=== PATIENT | female | born 1990 | race Caucasian/White ===

== ENCOUNTER → 2016-10-31 | Outpatient (REF) ==
[~2016-10-31] MED LIST: *ANUSOI PR; ACET500C OR; COLA100C2 OR; IBUP600T OR; LANOOIL2 XX; MILKSUS PV; MOTR200T44 PO; PRENTAB8 PO; TYLE325T5 PO; VITAPRTA PO
[2016-10-31 14:10] LABS: BASO % 0.4 % (0.0-1.0); EOS # 0.1 K/mm3 (0.0-0.50); EOS % 1.4 % (0.0-3.0); LARGE UNSTAINED CELL # 0.2 K/mm3 (0.0-0.4); LARGE UNSTAINED CELL % 2.6 % (0.0-4.0); LYMPH # 2.6 K/mm3 (1.5-6.5); LYMPH % 33.1 % (24.0-44.0); MEAN CORPUSCULAR HEMOGLOBIN 31.3 pg (27.0-33.0); MEAN CORPUSCULAR HGB CONC 34.9 g/dl (32.0-36.5); MEAN CORPUSCULAR VOLUME 89.7 fl (80.0-96.0); MONO # 0.3 K/mm3 (0.0-0.8); MONO % 4.6 % (0.0-5.0); NEUTROPHILS # 4.2 K/mm3 (1.8-7.7); NEUTROPHILS % 57.9 % (36.0-66.0); PLATELET COUNT, AUTOMATED 192 k/mm3 (150-450); RED CELL DISTRIBUTION WIDTH 12.5 % (11.5-14.5); WHITE BLOOD COUNT 7.3 K/mm3 (4.0-10.0)
[2016-10-31 14:48] LABS: ALBUMIN 3.9 GM/DL (3.2-5.2); ALBUMIN/GLOBULIN RATIO 1.56 (1.00-1.93); ALKALINE PHOSPHATASE 87 U/L (45-117); ALT/SGPT 16 U/L (12-78); ANION GAP 9 MEQ/L (8-16); AST/SGOT 10 U/L (15-37); BILIRUBIN,TOTAL 1.3 MG/DL (0.2-1.0); BLOOD UREA NITROGEN 11 MG/DL (7-18); CALCIUM LEVEL 8.8 MG/DL (8.5-10.1); CARBON DIOXIDE LEVEL 26 MEQ/L (21-32); CHLORIDE LEVEL 106 MEQ/L (98-107); CREATININE FOR GFR 0.91 MG/DL (0.55-1.02); GLOMERULAR FILTRATION RATE > 60.0 (>60); GLUCOSE, FASTING 80 MG/DL (70-105); POTASSIUM SERUM 4.1 MEQ/L (3.5-5.1); SODIUM LEVEL 141 MEQ/L (136-145); TOTAL PROTEIN 6.4 GM/DL (6.4-8.2)
== END ==
LOC: M LAB 12:40
PROVIDERS: ATTEND Nurse Practitioner Adult Health
DX: Z02.1 Encounter for pre-employment examination (principal)

== ENCOUNTER → 2017-05-03 | Outpatient (REF) | payer BC, OTHER | LOC: M LAB REF 16:59 | DX: Z12.4 Encounter for screening for malignant neoplasm of cervix (principal) ==

== ENCOUNTER → 2017-06-05 | Outpatient (REF) | payer BC, OTHER ==
[2017-06-05 16:11] LABS: INFLUENZA A AMPLIFICATION NEGATIVE (NEGATIVE); INFLUENZA B AMPLIFICATION NEGATIVE (NEGATIVE)
== END ==
LOC: M LAB REF 15:05
DX: J11.1 Influenza due to unidentified influenza virus with other respiratory manifestations (principal)
CPT/HCPCS: 87502

== ENCOUNTER → 2017-11-03 | Outpatient (REF) | payer BC, OTHER ==
[2017-11-03 15:20] LABS: CHLAMYDIA DNA AMPLIFICATION NEGATIVE (NEGATIVE); GC DNA AMPLIFICATION NEGATIVE (NEGATIVE)
== END ==
LOC: M LAB REF 12:57
DX: R10.30 Lower abdominal pain, unspecified (principal)
CPT/HCPCS: 87086

== ENCOUNTER → 2019-01-07 | Outpatient (REF) | payer BC | LOC: M LAB REF 10:51 | PROVIDERS: ATTEND Advanced Practice Midwife | DX: R87.610 Atypical squamous cells of undetermined significance on cytologic smear of cervix (ASC-US) (principal) | CPT/HCPCS: 87624; G0123 ==

== ENCOUNTER → 2019-05-02 | Outpatient (CLI) | payer BC ==
[2019-05-02 11:22] LABS: HCG, SERUM QUALITATIVE POSITIVE (NEGATIVE)
== END ==
LOC: M PLALAB 08:08
PROVIDERS: ATTEND Advanced Practice Midwife
DX: O36.80X0 Pregnancy with inconclusive fetal viability, not applicable or unspecified (principal)

== ENCOUNTER → 2019-05-27 | Outpatient (CLI) | payer BC ==
--- NOTE | 2019-05-27 19:21 | REP ---
First trimester obstetric sonography: History: Dating and viability. Bleeding. Threatened . Findings: Transabdominal scanning confirms the presence of a single living intrauterine gestation in a free-floating lie. The crown-rump length of the embryonic pole is 13 mm. This corresponds with a gestational age estimate of 7 weeks 4 days. heart rate is recorded at 150 beats per minute. No subchorionic hemorrhage is seen. There is a 1.5 cm cystic area in the maternal right ovary consistent with corpus luteum. No gross anomaly. Impression: Viable single intrauterine gestation at 7 weeks 4 days by crown-rump length. BART by sonography January 09, 2020. No complication is identified.
== END ==
LOC: M WHC 14:29
PROVIDERS: ATTEND Advanced Practice Midwife
DX: O20.0 Threatened abortion (principal); Z3A.01 Less than 8 weeks gestation of pregnancy

== ENCOUNTER → 2019-07-29 | Outpatient (REF) | payer BC ==
[2019-07-29 15:42] LABS: HEMATOCRIT 36.3 % (36.0-47.0); HEMOGLOBIN 12.5 g/dl (12.0-15.5); MEAN CORPUSCULAR HEMOGLOBIN 32.9 pg (27.0-33.0); MEAN CORPUSCULAR HGB CONC 34.4 g/dl (32.0-36.5); MEAN CORPUSCULAR VOLUME 95.5 fl (80.0-96.0); PLATELET COUNT, AUTOMATED 196 10^3/uL (150-450); WHITE BLOOD COUNT 8.2 10^3/uL (4.0-10.0)
[2019-07-29 16:30] LABS: HEPATITIS B SURFACE ANTIGEN NEGATIVE (NEGATIVE); HEPATITIS C VIRUS ABY INDEX 0.1 INDEX (<0.8); HIV 1&2 SCREEN CENTAUR NEGATIVE (NEGATIVE)
[2019-07-29 21:22] LABS: CHLAMYDIA DNA AMPLIFICATION NEGATIVE (NEGATIVE); GC DNA AMPLIFICATION NEGATIVE (NEGATIVE)
== END ==
LOC: M PLALAB 13:14
PROVIDERS: ATTEND Advanced Practice Midwife
DX: Z34.81 Encounter for supervision of other normal pregnancy, first trimester (principal)

== ENCOUNTER → 2019-10-07 | Outpatient (REF) | payer BC ==
[~2019-10-07] MED LIST changes: +BENEPOW18 PO; +CEPH500C PO; +COLA100C5 PO; +IBUP80TA PO; +PRENTAB55 PO
[2019-10-07 14:11] LABS: HEMATOCRIT 37.9 % (36.0-47.0); HEMOGLOBIN 12.4 g/dl (12.0-15.5); MEAN CORPUSCULAR HEMOGLOBIN 31.8 pg (27.0-33.0); MEAN CORPUSCULAR HGB CONC 32.7 g/dl (32.0-36.5); MEAN CORPUSCULAR VOLUME 97.2 fl (80.0-96.0); PLATELET COUNT, AUTOMATED 164 10^3/uL (150-450); WHITE BLOOD COUNT 8.7 10^3/uL (4.0-10.0)
== END ==
LOC: M PLALAB 08:23
PROVIDERS: ATTEND Advanced Practice Midwife
DX: Z36.89 Encounter for other specified antenatal screening (principal)

== ENCOUNTER 2019-11-21 13:26 | Inpatient (IN) | payer BC ==
[~2019-11-21] VITALS: Ht 160 cm; Wt 77.6 kg
[~2019-11-21 13:26] MED LIST changes: -BENEPOW18 PO; -CEPH500C PO; -COLA100C5 PO; -IBUP80TA PO; -PRENTAB55 PO
[2019-11-21] MEDS ORDERED: PRENTAB55 PO (13:53)
[2019-11-21] MEDS ORDERED: COLA100C5 PO (13:53)
[2019-11-21] MEDS ORDERED: BENEPOW18 PO (13:53)
[2019-11-21] MEDS ORDERED: NS 1,000 ML IV ONE (14:30)
[2019-11-21 15:29] LABS: BASO % 0.2 % (0.0-1.0); HEMATOCRIT 41.2 % (36.0-47.0); HEMOGLOBIN 13.5 g/dl (12.0-15.5); LYMPH # 0.7 10^3/uL (1.5-5.0); LYMPH % 6.5 % (24.0-44.0); MEAN CORPUSCULAR HEMOGLOBIN 30.5 pg (27.0-33.0); MEAN CORPUSCULAR HGB CONC 32.8 g/dl (32.0-36.5); MONO # 0.5 10^3/uL (0.0-0.8); MONO % 5.4 % (0.0-5.0); NEUTROPHILS # 8.6 10^3/uL (1.5-8.5); NEUTROPHILS % 85.6 % (36.0-66.0); PLATELET COUNT, AUTOMATED 130 10^3/uL (150-450); RED BLOOD COUNT 4.43 10^6/uL (4.00-5.40); WHITE BLOOD COUNT 10.1 10^3/uL (4.0-10.0)
[2019-11-21 15:51] LABS: ALBUMIN 2.7 GM/DL (3.2-5.2); ALT/SGPT 41 U/L (12-78); BILIRUBIN,DIRECT 0.6 MG/DL (0.0-0.2); BILIRUBIN,TOTAL 1.9 MG/DL (0.2-1.0); BLOOD UREA NITROGEN 4 MG/DL (7-18); CALCIUM LEVEL 8.9 MG/DL (8.5-10.1); CARBON DIOXIDE LEVEL 18 MEQ/L (21-32); CHLORIDE LEVEL 109 MEQ/L (98-107); CREATININE FOR GFR 0.62 MG/DL (0.55-1.30); GLOMERULAR FILTRATION RATE > 60.0 (>60); GLUCOSE, FASTING 68 MG/DL (70-100); LIPASE 72 U/L (73-393); POTASSIUM SERUM 3.2 MEQ/L (3.5-5.1); SODIUM LEVEL 138 MEQ/L (136-145); TOTAL PROTEIN 5.8 GM/DL (6.4-8.2)
[2019-11-21] MEDS ORDERED: POTASSIUM CHLORIDE 10 MEQ SR TABLET PO ONE (16:00)
--- NOTE | 2019-11-21 16:00 | REPVR ---
PROCEDURE INFORMATION: Exam: US Pelvis Limited, Transabdominal Exam date and time: 11/21/2019 3:17 PM Age: 28 years old Clinical indication: Pelvic pain; Patient HX: PT is preg but appendix exam was order under pelvic ltd; Additional info: Rlq pain eval for appy TECHNIQUE: Imaging protocol: Real-time transabdominal pelvic ultrasound with image documentation. Limited exam. COMPARISON: US OB<14WKS SINGLE OR 1ST GEST 05/27/2019 2:56 PM FINDINGS: Appendix: The appendix is not visualized. No free fluid is seen. No enlarged lymph nodes. Areas with shadowing artifact from air within bowel. IMPRESSION: Nonvisualized appendix. Appendicitis cannot be excluded with this study. Electronically signed by: Callie Griffin On 11/21/2019 16:01:28 PM
--- NOTE | 2019-11-21 16:21 | REPVR ---
PROCEDURE INFORMATION: Exam: US Abdomen, Limited; Right Upper Quadrant Exam date and time: 11/21/2019 3:17 PM Age: 28 years old Clinical indication: Abdominal pain; Acute; ; Additional info: Ruq pain, fever TECHNIQUE: Imaging protocol: US abdomen. Real time ultrasound with image documentation. Limited exam focused on the right upper quadrant. COMPARISON: No relevant prior studies available. FINDINGS: Liver: The liver is normal in size and echogenicity. Gallbladder: Nonmobile echogenic focus without shadowing in the fundus of the gallbladder measuring 7 x 6 by 4 mm. This may be adherent tumefactive sludge or a polyp. No echogenic shadowing stones. No gallbladder wall thickening. Trace pericholecystic fluid. Common bile duct: Normal. No stones. No dilation. Pancreas: The pancreas is poorly visualized because of shadowing bowel gas artifact. Right kidney: The right kidney measures 11.5 x 6.2 x 5.3 cm. There is minimal right-sided hydronephrosis. No echogenic shadowing foci to suggest renal calculi. Additional findings: The only assessment of the intrauterine gestation was measurement of heart motion, with heart rate of 172 bpm. IMPRESSION: 1. 7 mm nonmobile echogenic focus in the gallbladder fundus which may be adherent tumefactive sludge or a polyp. No shadowing stones. Trace pericholecystic fluid of uncertain etiology. No biliary ductal dilatation. 2. Minimal right-sided hydronephrosis. Electronically signed by: Callie Griffin On 11/21/2019 16:21:59 PM
[2019-11-21] MEDS ORDERED: NS 1,000 ML IV SCH (16:30)
[2019-11-21 17:02] LABS: APPEARANCE, URINE HAZY (CLEAR); BACTERIA, URINE AUTO 1+ (NEGATIVE); BILIRUBIN, URINE AUTO NEGATIVE (NEGATIVE); BLOOD, URINE BLOOD NEGATIVE (NEGATIVE); COLOR, URINE AMBER (YELLOW); GLUCOSE, URINE (UA) AUTO NEGATIVE (NEGATIVE); KETONE, URINE AUTO 2+ mg/dL (NEGATIVE); LEUKOCYTE ESTERASE, URINE AUTO 3+ (NEGATIVE); MUCUS, URINE SMALL (NEGATIVE); NITRITE, URINE AUTO NEGATIVE (NEGATIVE); PROTEIN, URINE AUTO 1+ mg/dL (NEGATIVE); RBC, URINE AUTO 1 /HPF (0-3); SPECIFIC GRAVITY URINE AUTO 1.023 (1.002-1.035); SQUAMOUS EPITHELIAL CELL UR AU 4 /HPF (0-6); WBC, URINE AUTO 19 /HPF (0-3)
[2019-11-21] MEDS ORDERED: ACETAMINOPHEN TAB 650MG DOSE (2X325MG) PO ONE (17:30)
[2019-11-21] MEDS ORDERED: DEXTROSE 50% 50 ML SYRINGE IV STA (17:44)
[2019-11-21] MEDS ORDERED: cefTRIAXone SOD 1 GM in D5W MINI-BAG PLUS 50 ML IV ONE (18:30)
[2019-11-21] MEDS ORDERED: METOCLOPRAMIDE INJ 10MG/2ML VIAL (J2765 PER 1) IV ONE (18:45)
[2019-11-21 20:45] VITALS: BP 118/55
[2019-11-21] MEDS: LR 1,000 ML IV SCH (21:13)
[2019-11-21] MEDS: ACETAMINOPHEN 500 MG TAB PO PRN (22:29)
[2019-11-22 00:08] VITALS: BP 114/58
[2019-11-22] MEDS: LR 1,000 ML IV SCH ×2 (03:44→13:39)
[2019-11-22] MEDS: ACETAMINOPHEN 500 MG TAB PO PRN (03:44)
[2019-11-22 04:00] VITALS: BP 113/56
[2019-11-22 07:40] VITALS: BP 133/74
[2019-11-22] MEDS ORDERED: PRENATAL VITAMINS CHEWABLE TABLET PO SCH (09:00)
[2019-11-22 09:39] LABS: HEMATOCRIT 38.5 % (36.0-47.0); HEMOGLOBIN 12.8 g/dl (12.0-15.5); MEAN CORPUSCULAR HEMOGLOBIN 30.8 pg (27.0-33.0); MEAN CORPUSCULAR HGB CONC 33.2 g/dl (32.0-36.5); MEAN CORPUSCULAR VOLUME 92.5 fl (80.0-96.0); PLATELET COUNT, AUTOMATED 113 10^3/uL (150-450); RED BLOOD COUNT 4.16 10^6/uL (4.00-5.40); WHITE BLOOD COUNT 9.8 10^3/uL (4.0-10.0)
[2019-11-22 10:08] LABS: BLOOD UREA NITROGEN 4 MG/DL (7-18); CALCIUM LEVEL 8.5 MG/DL (8.5-10.1); CARBON DIOXIDE LEVEL 20 MEQ/L (21-32); CHLORIDE LEVEL 112 MEQ/L (98-107); CREATININE FOR GFR 0.62 MG/DL (0.55-1.30); GLOMERULAR FILTRATION RATE > 60.0 (>60); GLUCOSE, FASTING 83 MG/DL (70-100); SODIUM LEVEL 141 MEQ/L (136-145)
--- NOTE | 2019-11-22 11:06 | IPNPDOC ---
Text Note Date of Service The patient was seen on 11/22/19. NOTE Progress Reports feeling somewhat improved since last night. Denies pain. Reports good movement [place]ard fever over night. Currently normotensive and afebrile. WBC count has improved, mild thrombocytopenia Reviewed pt status with Dr Marquez. Continue current medications and plan of care. Consider discharge in am if remains afebrile. VS,Fishbone, I+O VS, Fishbone, I+O Laboratory Tests 11/21/19 15:04 11/22/19 08:07 Vital Signs Date Time Temp Pulse Resp B/P (MAP) Pulse Ox O2 Delivery O2 Flow Rate FiO2 11/22/19 07:40 96.7 104 20 133/74 (93) 100 Room Air I&O- Last 24 Hours up to 6 AM 11/22/19 06:00 Intake Total 3495 ml Output Total 500 ml Balance 2995 ml Elodia Cruz CNM Nov 22, 2019 11:06
[2019-11-22 12:05] VITALS: BP 109/64
[2019-11-22 16:30] VITALS: BP 137/85
[2019-11-22] MEDS ORDERED: CEPHALEXIN 500 MG CAP PO SCH (17:30)
[2019-11-22] MEDS ORDERED: CEPH500C PO (17:31)
--- NOTE | 2019-11-22 17:34 | IPNPDOC ---
Text Note Date of Service The patient was seen on 11/22/19. NOTE Progress Feels much improved. Afebrile since 0100. Desires discharge. Consulted Dr Marquez. OK for discharge. Keflex 500mg BID x 10 days. Warnings reviewed. Call with return of symptoms or fever. Keep appt next week. VS,Fishbone, I+O VS, Fishbone, I+O Laboratory Tests 11/22/19 08:07 Vital Signs Date Time Temp Pulse Resp B/P (MAP) Pulse Ox O2 Delivery O2 Flow Rate FiO2 11/22/19 16:30 97.2 105 18 137/85 (102) 100 Room Air I&O- Last 24 Hours up to 6 AM 11/22/19 06:00 Intake Total 3495 ml Output Total 500 ml Balance 2995 ml Elodia Cruz CNM Nov 22, 2019 17:34
[2019-11-22] MEDS ORDERED: cefTRIAXone SOD 1 GM in D5W MINI-BAG PLUS 50 ML IV SCH (21:00)
--- NOTE | 2019-12-04 10:55 | ECGEPIP ---
[facility] - ED Test Date: 2019-11-21 Pat Name: FOUZIA OCAMPO Department: Room: - Gender: Female [employer]: : 1990 Requested By: PAO Pruitt Order Number: [id number] Reading MD: Shannan Lerma Measurements Intervals [place] Rate: 113 P: 25 ME: 123 QRS: 16 QRSD: 88 T: -6 QT: 309 QTc: 425 Interpretive Statements SINUS TACHYCARDIA NONSPECIFIC T-WAVE ABNORMALITY ABNORMAL RHYTHM ECG SEE SCANNED DOWNTIEM REPORT
== END 2019-11-22 18:05 | disposition home or self-care (01) | DRG 566 ==
LOC: M ED 13:26 → M ED INP 18:18 → ENRESERV 18:35 → M PED 20:31
PROVIDERS: ADMIT Obstetrics & Gynecology; ATTEND Obstetrics & Gynecology
DX: O23.03 Infections of kidney in pregnancy, third trimester (principal); N10 Acute pyelonephritis; Z3A.33 33 weeks gestation of pregnancy; Z11.59 Encounter for screening for other viral diseases

== ENCOUNTER → 2019-11-21 | Outpatient (CLI) | payer BC | LOC: M LABSMTC 09:59 | PROVIDERS: ATTEND Pediatrics | DX: Z03.818 Encounter for observation for suspected exposure to other biological agents ruled out (principal); Z11.59 Encounter for screening for other viral diseases | CPT/HCPCS: C9803; U0002 ==

== ENCOUNTER → 2019-12-10 | Outpatient (REF) | payer BC ==
[~2019-12-10] MED LIST changes: +BENEPOW18 PO; +CEPH500C PO; +COLA100C5 PO; +IBUP80TA PO; +PRENTAB55 PO
== END ==
LOC: M SFHCWAGY 13:08
PROVIDERS: ATTEND Advanced Practice Midwife
DX: Z34.83 Encounter for supervision of other normal pregnancy, third trimester (principal); Z3A.00 Weeks of gestation of pregnancy not specified

== ENCOUNTER 2020-01-10 00:22 | Inpatient (IN) | payer BC ==
[~2020-01-10] VITALS: Ht 160 cm; Wt 79.8 kg
[2020-01-10] VITALS (60 sets, daily range): BP systolic 109–149; BP diastolic 58–96
[~2020-01-10 00:22] MED LIST changes: -IBUP80TA PO
[2020-01-10] MEDS ORDERED: LACTATED RINGER'S 1000 ML IV STA (00:39)
--- NOTE | 2020-01-10 01:01 | HPEPDOC ---
Obstetrical History & Physical General Date of Admission Jan 10, 2020 at 00:32 Primary Care Physician: CJ LOPEZ CNM History of Present Illness Carmine is a 29-year-old female who is at 40.4 weeks gestation with an BART of 01/06/20 based off of her LMP and consistent with her first trimester labs. Her has been complicated by a hospital admission in her third trimester and was diagnosed with pyelonephritis. She presents to L&D with complaints of painful contractions. She reports bloody show and active movement. She denies leaking of fluid. Chief Complaint: Active Labor Information Provided By: Patient Age: 29 : 3 Term: 2 Pre-term: 0 Abortions: 0 Livin Care Care: Good Care Dating Final EDC: Jan 06, 2020 Final EDC by: LMP LMP: Apr 01, 2019 EGA at Admission: 40.4 Antepartum Course Pre- weight (lbs.): 157 Admission Weight (lbs.): 173 Change in Weight (lbs.): 16 Past Medical History Past Obstetrical History #1: Past Obstetrical History: Primgravida Gestation: 39.6 Type of Delivery: Spontaneous Vaginal Del. (09/2011) Sex of : Male (8 lbs 9 oz) Complications: No Past Obstetrical History #2: Past Obstetrical History: Multigravida Date of Delivery: Oct 31, 2014 Gestation: 39.3 Type of Delivery: Spontaneous Vaginal Del. Sex of Infant: Male (8 lbs 6 oz) Complications: No CONTRACTS ANALYST History: Abnormal Pap (ASCUS) Past Medical History Medical History Varicella as a child Surgical History: Other (achilles tendon repair, ovarian hyperstimulation from egg donation and retrieval) Family History Significant Family History: Cancer (throat cancer) Social History Marital Status: Family situation: Spouse/partner home Psychosocial History: No pertinent psych hx * Smoker: non-smoker Alcohol: Denies Drugs: denies Abuse Violence Screening Have you been hit/kicked/slapp: No Have you been sexually assault: No Imunizations Tdap status: current Influenza Status: current Allergies Coded Allergies: levofloxacin (Verified Allergy, Unknown, RASH, 01/10/20) Medications Scheduled Docusate Sodium (Colace) 100 Mg Capsule, 250 MG PO DAILY [id number]/Iron Fum/Folic/Docusate ( 19 Tablet) 1 Each Tablet, 1 TAB PO QPM Physical Examination Physical Examination GENERAL: Alert and oriented times three. ABDOMEN: Gravid and non-tender to touch. FETUS: Is vertex (VTX) by sterile vaginal examination (SVE), fetus is vertex (VTX) by Gary. HEART RATE: Regular rate and rhythm. LUNGS: Clear to auscultation (CTA). EXTREMITIES: No edema. No clonus. Deep tendon reflexes (DTRs) + 2. Laboratory Data 24H LABS Laboratory Tests 2 01/10/20 00:39: Serology Scanned Report Hepatitis B Testing Pertinent Laboratoy Data Blood Type: AB+ RBC Antibody Screen: Positive (Anti-I) HIV: Negative Hepatitis B: Negative Hepatitis C: Negative Rapid Plasma Reagin: Nonreactive Rubella: Immune Chlamydia/Gonorrhea: Negative Group B Streptococcus: Negative Vaginal Examination Dilation: 4 cm Effacement: 100% Station: 0 Presentation: Cephalic presentation Position: Vertex (occiput) Assessment Heart Rate (FHR): 115 Variability: Moderate Accelerations: Positive Decelerations: Early Tocometer Contractions: Yes Frequency: regular Assessment/Plan Assessment IUP at 40.4 weeks gestation GBS negative Category I FHR tracing active labor Plan Admit to L&D. OOB ad rika. Diet: clears. Group B Streptococcus (GBS) negative. Labs and intravenous (IV) per unit protocol. Anesthesia consult per patient's request. Lactated Ringers (LR): Bolus 500 mL, then at 125 mL/hr. Anticipate normal spontaneous delivery (). C-S as appropriate. CJ LOPEZ CNM Jan 10, 2020 01:01
[2020-01-10] MEDS: LR 1,000 ML IV SCH ×2 (01:02→10:55)
[2020-01-10 01:05] LABS: HEMATOCRIT 43.5 % (36.0-47.0); HEMOGLOBIN 14.3 g/dl (12.0-15.5); MEAN CORPUSCULAR HEMOGLOBIN 29.5 pg (27.0-33.0); MEAN CORPUSCULAR HGB CONC 32.9 g/dl (32.0-36.5); MEAN CORPUSCULAR VOLUME 89.9 fl (80.0-96.0); PLATELET COUNT, AUTOMATED 191 10^3/uL (150-450); RED BLOOD COUNT 4.84 10^6/uL (4.00-5.40); WHITE BLOOD COUNT 12.6 10^3/uL (4.0-10.0)
[2020-01-10 01:29] LABS: ALT/SGPT 38 U/L (12-78); BILIRUBIN,TOTAL 1.1 MG/DL (0.2-1.0); CREATININE FOR GFR 0.78 MG/DL (0.55-1.30); GLOMERULAR FILTRATION RATE > 60.0 (>60); LDH LACTATE DEHYDROGENASE 173 U/L (84-246); URIC ACID 4.4 MG/DL (2.6-6.0)
[2020-01-10] MEDS ORDERED: FENTANYL 2MCG/ML ROPIVACAINE 0.2% IN 0.9% NACL 100ML IVBAG As Ordered ONE (01:29)
[2020-01-10] MEDS ORDERED: EPIDURAL/PCA KEYS XX PRN (01:56)
[2020-01-10] MEDS ORDERED: diphenhydrAMINE 50MG/ML VIAL (J1200) IV PRN (01:56)
[2020-01-10] MEDS ORDERED: LACTATED RINGER'S 1000 ML IV PRN (01:56)
[2020-01-10] MEDS ORDERED: ePHEDrine SULFATE 25 MG/5 ML(5MG/ML) SYRINGE IV PRN (01:56)
[2020-01-10] MEDS ORDERED: REFRIGERATOR IV KEYS XX PRN (01:56)
[2020-01-10] MEDS ORDERED: ONDANSETRON 4MG/2ML VIAL IV PRN (01:56)
[2020-01-10] MEDS ORDERED: NALOXONE INJ 0.4MG/1ML VIAL (J2310 PER 1MG) IV PRN (01:56)
[2020-01-10] MEDS ORDERED: EPIDURAL COMMENT XX SCH (01:56)
[2020-01-10] MEDS ORDERED: OXYTOCIN 30 UNITS IN 0.9% NaCl 500ML IV BAG (J2590) As Ordered ONE (02:21)
[2020-01-10] MEDS ORDERED: OXYTOCIN DRIP 30 UNITS in IV 1 EA IV SCH ×2 (05:00→13:28)
--- NOTE | 2020-01-10 06:39 | IPNPDOC ---
Obstetrical Progress Note Date of Service Jan 10, 2020 Subjective Patient comfortable with her epidural. Objective BP: 115/62; HR 81 Assessment Heart Rate (FHR): 120 Variability: Moderate Accelerations: Positive Decelerations: Early Heart Rate Tracing: Category I Tocometer Contractions: Yes Frequency: regular Sterile Vaginal Examination Dilation: 6 cm Effacement (%): 100% Station: 0 Postion/Presentation: Cephalic presentation Assessment and Plan Status: Reassuring Group B Streptococcus: Negative Anticipate: Vaginal Delivery Additional Comments IV Pitocin was ordered and is a 6 mu/min currently. AROM done at 0249 to a moderate amount of clear fluid. CJ LOPEZ CNM Jan 10, 2020 06:39
[2020-01-10] MEDS: FENTANYL/ROPIVACAINE/NACL BAG 100 ML EPIDURAL SCH ×2 (07:19→10:57)
--- NOTE | 2020-01-10 10:40 | IPNPDOC ---
Obstetrical Progress Note Date of Service Jan 10, 2020 Subjective Patient reports discomfort/pain and pressure. Objective Vital Signs Date Time Temp Pulse Resp B/P (MAP) Pulse Ox O2 Delivery O2 Flow Rate FiO2 01/10/20 09:14 86 138/77 (97) 01/10/20 08:16 99.3 17 Assessment Heart Rate (FHR): 140 Variability: Minimal to moderate Accelerations: None Decelerations: Early, Variable Heart Rate Tracing: Category II Tocometer Contractions: Yes Frequency: regular Sterile Vaginal Examination Dilation: 7 cm Effacement (%): 90% Station: 0 Postion/Presentation: Cephalic presentation Assessment and Plan EGA at Admission: 40.4 Status: Reassuring Group B Streptococcus: Negative Anticipate: Vaginal Delivery Additional Comments IUPC placed. IV Pitocin at 10 mu/min. Will continue to monitor. No cervical change in hours despite multiple position changes and Pitocin. CJ LOPEZ CNM Jan 10, 2020 10:40
--- NOTE | 2020-01-10 12:11 | IPNPDOC ---
Obstetrical Progress Note Date of Service Jan 10, 2020 Subjective Patient comfortable with her epidural. Objective Vital Signs Date Time Temp Pulse Resp B/P (MAP) Pulse Ox O2 Delivery O2 Flow Rate FiO2 01/10/20 10:58 90 138/78 (98) 01/10/20 10:01 97.2 17 Assessment Heart Rate (FHR): 145 Variability: Minimal to moderate Decelerations: Early, Variable Heart Rate Tracing: Category II Tocometer Contractions: Yes Frequency: regular Assessment and Plan Additional Comments Multiple position changes. Will do cervical check soon. Patient aware of recommendations for section if no cervical change. She desires to try and push through existing cervix if she is still unchanged to see if she can have a successful vaginal delivery. CJ LOPEZ CNM Jan 10, 2020 12:11
[2020-01-10] MEDS ORDERED: MEASLES,MUMPS,RUBELLA VACCINE INJ (MMR-II) (90707) SC SCH (13:30)
[2020-01-10] MEDS ORDERED: RHOGAM 300 MCG (1500 IU) INJ (J2790) IM SCH (13:30)
[2020-01-10] MEDS ORDERED: IBUPROFEN 600MG TAB PO PRN (13:30)
[2020-01-10] MEDS ORDERED: DIBUCAINE 1% OINTMENT 30GM TOP PRN (13:30)
[2020-01-10] MEDS ORDERED: ANUSOL HC CREAM 30GM TOP PRN (13:30)
[2020-01-10] MEDS ORDERED: ACETAMINOPHEN TAB 650MG DOSE (2X325MG) PO PRN (13:30)
[2020-01-10] MEDS ORDERED: DOCUSATE SODIUM 100 MG CAP PO PRN (13:30)
[2020-01-10] MEDS ORDERED: ACETAMINOPHEN 500 MG TAB PO PRN (13:30)
[2020-01-10] MEDS: IBUPROFEN 800 MG TAB PO PRN ×2 (13:43→20:45)
--- NOTE | 2020-01-10 13:59 | DNPDOC ---
[facility] Delivery Note Delivery Note DATE OF DELIVERY: 01/10/20 at 1254 PREDELIVERY DIAGNOSIS: 40-4/7 weeks' gestation and labor. POST DELIVERY DIAGNOSIS: Delivered. PROCEDURE: Spontaneous vaginal delivery. DIGITAL DIRECTOR: Cj Obrien CNM, MELANIE ANESTHESIA: epidural. ESTIMATED BLOOD LOSS: 900 mL. FINDINGS: 8 pounds 15 ounces; 4060 grams; female , Score 9/9, macrosomia, retained placenta with manual removal; hemorrhage. DELIVERY SUMMARY: Patient is a 29-year-old female who is now a who presented to L&D in active labor. Carmine requested an epidural for pain management. She progressed to 9 cms dilated with IV Pitocin augmentation and multiple position changes. Patient desired to push through the rest of her cervix. One attempt made and patient was able to push through remaining cervix and become fully dilated. at 1243. She pushed to a living female in the AMOL position with restitution to LOT. The anterior shoulder delivered with ease and the corpus immediately followed. The was placed on the maternal abdomen active and crying with stimulation. The cord was clamped after pulsation ceased and cut by the FOB. A 3-vessel cord was noted. The patient had about a 600 cc blood loss prior to the placenta being delivered. The placenta was manually removed and during that time another 300 cc of blood loss was noted. A uterine s weep was done and a small placental fragment was removed. The placenta was noted to be bilobed vs a large succenturiate lobe. Unasyn 3 grams ordered due to manual removal of the placenta. Uterine hemostasis was achieved via rapid infusion of IV Pitocin and fundal massage. Scant bleeding noted after manual removal of placenta. The vagina, cervix, and perineum was inspected and found to have a yeison-urethra abrasion, a left labia abrasion and a perineal abrasion. No repair done. Mom plans to breastfeed. They are naming her Josi. Both mom and baby are in stable condition. All counts of instruments and sponges are correct. CJ OBRIEN CNM Jan 10, 2020 13:59
[2020-01-10] MEDS ORDERED: AMPICILLIN SOD/SULBACTAM SOD 3 GM in D5W MINI-BAG PLUS 100 ML IV ONE (14:00)
[2020-01-10] MEDS: PRENATAL VITAMINS CHEWABLE TABLET PO SCH (14:03)
[2020-01-10] MEDS ORDERED: METHYLERGONOVINE MALEATE 0.2 MG/ML VIAL (J2210) IM ONE (14:30)
[2020-01-10] MEDS ORDERED: CARBOPROST TROMETHAMINE 250 MCG/ML AMP IM ONE (15:00)
[2020-01-11 06:31] VITALS: BP 110/67
--- NOTE | 2020-01-11 07:27 | IPNPDOC ---
Text Note Date of Service The patient was seen on 01/11/20. NOTE Inpatient Reports cramping and perineal discomfort. Tylenol and Motrin effective for pain management. VSS, afebrile, normotensive. is going well, no pain with latch. Patient appears pale. Awaiting CBC results this AM. Denies SOB, dizziness, t achycardia. Fundus firm, midline at U, lochia small, no odor. Desires discharge home today, contingent upon CBC and well being. VS,Fishbone, I+O VS, Fishbone, I+O Vital Signs Date Time Temp Pulse Resp B/P (MAP) Pulse Ox O2 Delivery O2 Flow Rate FiO2 01/11/20 06:31 98.4 79 19 110/67 (81) 01/10/20 18:17 98 Room Air I&O- Last 24 Hours up to 6 AM 01/11/20 06:00 Intake Total 1715.3 ml Output Total 1750 ml Balance -34.7 ml Elodia Cruz CNM Jan 11, 2020 07:27
[2020-01-11 08:06] LABS: HEMATOCRIT 29.7 % (36.0-47.0); MEAN CORPUSCULAR HEMOGLOBIN 29.4 pg (27.0-33.0); MEAN CORPUSCULAR HGB CONC 32.3 g/dl (32.0-36.5); MEAN CORPUSCULAR VOLUME 91.1 fl (80.0-96.0); PLATELET COUNT, AUTOMATED 169 10^3/uL (150-450); RED BLOOD COUNT 3.26 10^6/uL (4.00-5.40); WHITE BLOOD COUNT 15.9 10^3/uL (4.0-10.0)
[2020-01-11 08:19] LABS: HEMOGLOBIN 9.6 g/dl (12.0-15.5)
[2020-01-11] MEDS: PRENATAL VITAMINS CHEWABLE TABLET PO SCH (09:53)
[2020-01-11] MEDS: IBUPROFEN 800 MG TAB PO PRN (11:45)
[2020-01-11] MEDS ORDERED: IBUP80TA PO (16:23)
--- NOTE | 2020-01-11 16:31 | DS.PDOC ---
Discharge Summary General Date of Admission Jan 10, 2020 at 00:32 Date of Discharge 01/10/2020 Discharge Summary PROCEDURES PERFORMED DURING STAY: spontaneous vaginal delivery with hemorrhage ADMITTING DIAGNOSES: 1. active labor at term DISCHARGE DIAGNOSES: 1. active labor at term, delivered COMPLICATIONS/CHIEF COMPLAINT: Labor Check. HISTORY OF PRESENT ILLNESS/HOSPITAL COURSE: Carmine is a 29-year-old female who is now a who presented to L&D in active labor and had complicated by PPH, 900ml secondary to retained placenta removed with manual extraction for which she received 3g IV unasyn x1. She then went on to have an uncomplicated PP course. H/H at time of discharge was 9.6/29.7. At time of discharge, she was ambulating without issue, tolerating regular diet, pain well controlled, spontaneously voiding without problem and had normal vital signs. She is highly desirous of discharge at this time. DISCHARGE MEDICATIONS: Please see below. ALLERGIES: Please see below. PHYSICAL EXAMINATION ON DISCHARGE: VITAL SIGNS: Please see below. GENERAL: WDWN, NAD ABDOMEN: fundus firm, abdomen soft Lochia modest in amount LABORATORY DATA: Please see below. ACTIVITY: As tolerated, vaginal rest 6 weeks DIET: regular DISCHARGE PLAN: discharge to home with follow up PP visit at [facility] with CARLINE Obrien in 6 weeks DISPOSITION: home DISCHARGE INSTRUCTIONS: 1. Vaginal rest and no heavy lifting 6 weeks 2. Return for soaking through 2 pads in an hour for more than 2 hours, fe vers/chills, increasing abdominal pain, breast pain/redness, or anything else concerning DISCHARGE CONDITION: Stable TIME SPENT ON DISCHARGE: Greater than 10 minutes. Anais Jacobo MD Vital Signs/I&Os Vital Signs Date Time Temp Pulse Resp B/P (MAP) Pulse Ox O2 Delivery O2 Flow Rate FiO2 01/11/20 06:31 98.4 79 19 110/67 (81) 01/10/20 18:17 98 Room Air I&O- Last 24 Hours up to 6 AM 01/11/20 06:00 Intake Total 1715.3 ml Output Total 1750 ml Balance -34.7 ml Laboratory Data Labs 24H Laboratory Tests 2 01/11/20 07:24: Nucleated Red Blood Cells % (auto) 0.0 CBC/BMP Laboratory Tests 01/11/20 07:24 Discharge Medications Scheduled Docusate Sodium (Colace) 100 Mg Capsule, 250 MG PO DAILY, (Reported) [id number]/Iron Fum/Folic/Docusate ( 19 Tablet) 1 Each Tablet, 1 TAB PO QPM, (Reported) Scheduled PRN Ibuprofen (Ibuprofen) 800 Mg Tablet, 800 MG PO Q8HP PRN for PAIN LEVEL 6-10 Allergies Coded Allergies: levofloxacin (Verified Allergy, Unknown, RASH, 01/10/20) Anais Jacobo MD Jan 11, 2020 16:31
== END 2020-01-11 17:45 | disposition home or self-care (01) | DRG 541 ==
LOC: M LDO 00:22 → M LDI 00:32 → M OBS 15:40
PROVIDERS: ADMIT Advanced Practice Midwife; ATTEND Advanced Practice Midwife
PROC: 10E0XZZ Delivery of Products of Conception, External Approach (ICD-10-PCS; principal; 2020-01-10)
PROC: 10D17Z9 Manual Extraction of Products of Conception, Retained, Via Natural or Artificial Opening (ICD-10-PCS; 2020-01-10)
PROC: 10907ZC Drainage of Amniotic Fluid, Therapeutic from Products of Conception, Via Natural or Artificial Opening (ICD-10-PCS; 2020-01-10)
DX: O48.0 Post-term pregnancy (principal); O72.0 Third-stage hemorrhage; Z3A.40 40 weeks gestation of pregnancy; O43.193 Other malformation of placenta, third trimester; Z37.0 Single live birth

== ENCOUNTER → 2020-04-16 | Outpatient (REF) | payer BC ==
[~2020-04-16] MED LIST changes: +IBUP80TA PO
== END ==
LOC: M SFHCWAGY 13:37
PROVIDERS: ATTEND Advanced Practice Midwife
DX: Z12.4 Encounter for screening for malignant neoplasm of cervix (principal); N88.8 Other specified noninflammatory disorders of cervix uteri
CPT/HCPCS: 87624; G0123